=== PATIENT | female | born 1950 | race Hispanic/Latino ===

== ENCOUNTER 2019-09-20 22:13 | Emergency (ER) | payer MEDICARE, OTHER ==
[~2019-09-20] VITALS: Ht 157.5 cm; Wt 95.3 kg
--- OUTSIDE RECORDS SUMMARY | 2019-09-20 22:16 | XMS REPORT ---
Author Author [facility] t Organization [facility] Address [address] [place] [address] Phone Unavailable Care Team Providers Care Transport Nurse Name Role Phone Unavailable Unavailable Payers Payer Name Policy Type Policy Number Effective Date Expiration Date S ource Problems This patient has no known problems. Allergies, Adverse Reactions, Alerts Allergy Name Allergy Type Status Severity Reaction(s) Onset Date Inacti ve Date Treating Clinician Comments Source No Known Allergies DA Active U 2018-05-28 00:00:00 [facility] No Known Contrast Allergies DA Active U 2008-06-26 00:00: 00 [facility] No Known Drug Allergies DA Active U 2008-06-26 00:00:00 [facility] No Known Food Allergies DA Active U 2008-06-26 00:00:00 [facility] No Known Other Allergies DA Active U 2008-06-26 00:00:00 [facility] Medications This patient has no known medications. Procedures This patient has no known procedures. Results Test Description Test Time Test Comments Results Result Comments Source - CT ABD PELVIS W/CONT 2019-09-08 01:30:00 Jay e: ASTRID ZHANG [facility] FSED : 1950 Age/S: 68 / F [address] [facility] N Unit #: [id number] Loc: [address] Phys: Jaydon Mathews MD [place], [place] [address] Acct: [id number] Dis Date: Status: REG ER PHONE #: Exam Date: 09/08/2019 0048 FAX #: Reason: diffuse abd pain EXAMS: CPT CODE: [id number] CT ABD PELVIS W/CONT 94829 EXAM: - CT ABD PELVIS W/CONT LOCATION: C3 INDICATION: 68 years -old Female with diffuse abd pain TECHNIQUE: Contrast - IV contrast was given. No oral contrast was given Portal venous phase - abdomen and pelvis Delayed phase imaging was obtained through the abdomen and pelvis Reconstructions - coronal and sagittal planes This exam was performed according to our departmental dose-optimization program, which includes automated exposure control, adjustment of the mA and/or kV according to patient size and/or use of iterative reconstruction technique COMPARISON: None FINDINGS: Statements: None. Thoracic: Included images of the lower chest demonstrate no abnormalities. Hepatobiliary: The liver is normal without focal lesion. The gallbladder is normal. No biliary dilation. Pancreas: Normal. Spleen: Normal. Adrenals: Normal. Genitourinary: The kidneys are normal. No evidence of hydronephrosis. Evaluation of the bladder is limited, but no obvious bladder abnormality is present. Gastrointestinal: No bowel obstruction or perienteric inflammation. The appendix is normal. Vascular: Atherosclerotic calcifications are seen within the aorta and branch vessels. Lymphatics: No enlarged lymph nodes by CT size criteria. PAGE 1 Signed Report (CONTINUED) Name: ASTRID ZHANG [facility] FSED : 1950 Age/S: 68 / F [address] [facility] N Unit #: [id number] Loc: [address] Phys: Jaydon Mathews MD [place], [place] [address] Acct: [id number] Dis Date: Status: REG ER PHONE #: Exam Date: 09/08/2019 0048 FAX #: Reason: diffuse abd pain EXAMS: CPT CODE: [id number] CT ABD PELVIS W/CONT 06463 <Continued> Bones/Soft Tissues: No acute osseous findings. No ventral hernias. Peritoneum/Other: No extraluminal air. No extraluminal fluid. IMPRESSION: No acute findings. at 0130 Reported and signed by: Gallo Hernandez M.D. CC: Jaydon Mathews MD Technologist:Miles Yanez CTDI: DLP: Trnscb Date/Time: 09/08/2019 (129) [email or web address] Orig Print D/T: S: 09/08/2019 (132) PAGE 2 Signed Report BASIC METABOLIC PANEL 2019-09-08 00:19:00 Test Item SODIUM (test code = NA) 140 mmol/L 128-145 N POTASSIUM (test code = K) 3.7 mmol/L 3.5-5.1 N CHLORIDE (test code = CL) 101.0 mmol/L 98-107 N CARBON DIOXIDE (test code = CO2) 25.6 mmol/L 22-29 N ANION GAP (test code = GAP) 17 mmol/L 10-20 N GLUCOSE (test code = GLU) 110 mg/dL 70-110 N BLOOD UREA NITROGEN (test code = BUN) 12 mg/dL 7-22 N GLOMERULAR FILTRATION RATE (test code = GFR) > 60 mL/min >=60 Estimated GFR by using Modified MDRD formula.Chronic kidney disease is defined as either kidney damageor GFR <60 mL/min/1.73 m2 for >3 months. CREATININE (test code = CREAT) 0.79 mg/dL 0.55-1.3 N BUN/CREATININE RATIO (test code = BUN/CREA) 15.2 10-20 N CALCIUM (test code = CA) 9.1 mg/dL 8.0-10.5 N HEPATIC FUNCTION [id number] 00:19:00* Test Item Value Reference Range Interpretation Comments TOTAL PROTEIN (test code = PROT) 8.9 gram/dL 6.1-7.8 H ALBUMIN (test code = ALB) 4.3 g/dL 3.3-4.4 N GLOBULIN (test code = GLOB) 4.6 G/DL 1-10 N ALBUMIN/GLOBULIN RATIO (test code = A/G) 0.9 0.75-1.50 N BILIRUBIN TOTAL (test code = BILT) 0.40 mg/dL 0.2-1.2 N BILIRUBIN DIRECT (test code = BILD) 0.10 mg/dL 0.0-0.30 N SGOT/AST (test code = AST) 19 U/L 10-39 N SGPT/ALT (test code = ALT) 23 U/L 10-69 N ALKALINE PHOSPHATASE TOTAL (test code = ALKP) 96 U/L 50-139 N [id number] 00:19:00* Test Item Value Reference Range Interpretation Comments LIPASE (test code = LIP) 108 Unit/L 144-286 L HCG SERUM [id number] 00:19:00* Test Item Value Reference Range Interpretation Comments HCG SERUM QUAL (test code = HCGQL) NEGATIVE NEGATIVE This HCGQL test is NOT applicable for MALE patients.Check with nurse about probable order error.If Tumor Marker Test needed, nurse should order test "HCGTU"(Test #550.58734) BASIC METABOLIC [id number] 00:15:00* Test Item Value Reference Range Interpretation Comments SODIUM (test code = NA) 140 mmol/L 128-145 N POTASSIUM (test code = K) 3.7 mmol/L 3.5-5.1 N CHLORIDE (test code = CL) 101.0 mmol/L 98-107 N CARBON DIOXIDE (test code = CO2) 25.6 mmol/L 22-29 N ANION GAP (test code = GAP) 17 mmol/L 10-20 N GLUCOSE (test code = GLU) 110 mg/dL 70-110 N BLOOD UREA NITROGEN (test code = BUN) 12 mg/dL 7-22 N GLOMERULAR FILTRATION RATE (test code = GFR) > 60 mL/min >=60 Estimated GFR by using Modified MDRD formula.Chronic kidney disease is defined as either kidney damageor GFR <60 mL/min/1.73 m2 for >3 months. CREATININE (test code = CREAT) 0.79 mg/dL 0.55-1.3 N BUN/CREATININE RATIO (test code = BUN/CREA) 15.2 10-20 N CALCIUM (test code = CA) 9.1 mg/dL 8.0-10.5 N HEPATIC FUNCTION [id number] 00:15:00* Test Item Value Reference Range Interpretation Comments TOTAL PROTEIN (test code = PROT) gram/dL 6.4-8.2 ALBUMIN (test code = ALB) g/dL 3.4-5.0 GLOBULIN (test code = GLOB) G/DL 1-10 ALBUMIN/GLOBULIN RATIO (test code = A/G) 0.75-1.50 BILIRUBIN TOTAL (test code = BILT) mg/dL 0.0-1.0 BILIRUBIN DIRECT (test code = BILD) mg/dL 0.0-0.20 SGOT/AST (test code = AST) IUnit/L 15-37 SGPT/ALT (test code = ALT) IUnit/L 12-78 ALKALINE PHOSPHATASE TOTAL (test code = ALKP) IUnit/L 45-117 [id number] 00:15:00* Test Item Value Reference Range Interpretation Comments LIPASE (test code = LIP) U/L 73.0-393.0 HCG SERUM [id number] 00:15:00* Test Item Value Reference Range Interpretation Comments HCG SERUM QUAL (test code = HCGQL) NEGATIVE NEGATIVE This HCGQL test is NOT applicable for MALE patients.Check with nurse about probable order error.If Tumor Marker Test needed, nurse should order test "HCGTU"(Test #550.34966) [id number] 00:06:00* Test Item Value Reference Range Interpretation Comments TROPONIN-I (test code = TROPI) <0.015 ng/mL 0-0.045 N BASIC METABOLIC [id number] 00:00:00* Test Item Value Reference Range Interpretation Comments SODIUM (test code = NA) mmol/L 136-145 POTASSIUM (test code = K) mmol/L 3.5-5.1 CHLORIDE (test code = CL) mmol/L 98-107 CARBON DIOXIDE (test code = CO2) mmol/L 21-32 ANION GAP (test code = GAP) mmol/L 10-20 GLUCOSE (test code = GLU) mg/dL 70-110 BLOOD UREA NITROGEN (test code = BUN) mg/dL 7-22 GLOMERULAR FILTRATION RATE (test code = GFR) mL/min >=60 CREATININE (test code = CREAT) mg/dL 0.55-1.02 BUN/CREATININE RATIO (test code = BUN/CREA) 10-20 CALCIUM (test code = CA) mg/dL 8.5-10.1 HEPATIC FUNCTION [id number] 00:00:00* Test Item Value Reference Range Interpretation Comments TOTAL PROTEIN (test code = PROT) gram/dL 6.4-8.2 ALBUMIN (test code = ALB) g/dL 3.4-5.0 GLOBULIN (test code = GLOB) G/DL 1-10 ALBUMIN/GLOBULIN RATIO (test code = A/G) 0.75-1.50 BILIRUBIN TOTAL (test code = BILT) mg/dL 0.0-1.0 BILIRUBIN DIRECT (test code = BILD) mg/dL 0.0-0.20 SGOT/AST (test code = AST) IUnit/L 15-37 SGPT/ALT (test code = ALT) IUnit/L 12-78 ALKALINE PHOSPHATASE TOTAL (test code = ALKP) IUnit/L 45-117 [id number] 00:00:00* Test Item Value Reference Range Interpretation Comments LIPASE (test code = LIP) U/L 73.0-393.0 HCG SERUM [id number] 00:00:00* Test Item Value Reference Range Interpretation Comments HCG SERUM QUAL (test code = HCGQL) NEGATIVE NEGATIVE This HCGQL test is NOT applicable for MALE patients.Check with nurse about probable order error.If Tumor Marker Test needed, nurse should order test "HCGTU"(Test #550.34062) URINALYSIS [id number] 23:55:00* Test Item Value Reference Range Interpretation Comments UA COLOR (test code = COLU) YELLOW YELLOW UA APPEARANCE (test code = APPU) CLEAR CLEAR UA GLUCOSE DIPSTICK (test code = DGLUU) NEGATIVE mg/dL NEGATIVE UA BILIRUBIN DIPSTICK (test code = BILU) NEGATIVE NEGATIVE UA KETONE DIPSTICK (test code = KETU) NEGATIVE mg/dL NEGATIVE UA SPECIFIC GRAVITY (test code = SGU) 1.020 1.001-1.035 UA BLOOD DIPSTICK (test code = ARELI) TRACE NEGATIVE UA PH DIPSTICK (test code = DIEGO) 6.0 5.0-8.0 UA PROTEIN DIPSTICK (test code = PROU) NEGATIVE mg/dL Neg-15 UA UROBILINIOGEN DIPSTICK (test code = URO) 0.2 mg/dL 0.0-0.2 UA NITRITE DIPSTICK (test code = RAFAL) NEGATIVE NEGATIVE UA LEUKOCYTE ESTERASE DIPSTICK (test code = LEUU) NEGATIVE uL NEGA TIVE UA MICROSCOPIC NEEDED? (test code = UAMICRO) YES UA WBC (test code = WBCU) 0-5 per HPF 0-5 UA RBC (test code = RBCU) 0-2 per HPF 0-5 UA EPITHELIAL CELLS (test code = EPIU) Moderate (5-10/hpf) per HPF Few UA BACTERIA (test code = BACU) FEW per HPF NONE Urine Source? Clean CatchURINALYSIS [id number] 23:48:00* Test Item Value Reference Range Interpretation Comments UA COLOR (test code = COLU) YELLOW YELLOW UA APPEARANCE (test code = APPU) CLEAR CLEAR UA GLUCOSE DIPSTICK (test code = DGLUU) NEGATIVE mg/dL NEGATIVE UA BILIRUBIN DIPSTICK (test code = BILU) NEGATIVE NEGATIVE UA KETONE DIPSTICK (test code = KETU) NEGATIVE mg/dL NEGATIVE UA SPECIFIC GRAVITY (test code = SGU) 1.020 1.001-1.035 UA BLOOD DIPSTICK (test code = ARELI) TRACE NEGATIVE UA PH DIPSTICK (test code = DIEGO) 6.0 5.0-8.0 UA PROTEIN DIPSTICK (test code = PROU) NEGATIVE mg/dL Neg-15 UA UROBILINIOGEN DIPSTICK (test code = URO) 0.2 mg/dL 0.0-0.2 UA NITRITE DIPSTICK (test code = RAFAL) NEGATIVE NEGATIVE UA LEUKOCYTE ESTERASE DIPSTICK (test code = LEUU) NEGATIVE uL NEGA TIVE UA MICROSCOPIC NEEDED? (test code = UAMICRO) UA WBC (test code = WBCU) per HPF 0-5 UA RBC (test code = RBCU) per HPF 0-5 UA EPITHELIAL CELLS (test code = EPIU) per HPF Few UA BACTERIA (test code = BACU) per HPF NONE Urine Source? Clean CatchCBC W/O [id number] 23:44:00* Test Item Value Reference Range Interpretation Comments WHITE BLOOD CELL (test code = WBC) 11.0 K/mm3 4.5-12.5 N RED BLOOD CELL (test code = RBC) 5.19 mill/mm3 3.7-5.2 N HEMOGLOBIN (test code = HGB) 14.3 gram/dL 11.5-15.5 N HEMATOCRIT (test code = HCT) 44.2 % 36.0-46.0 N MEAN CELL VOLUME (test code = MCV) 85.2 fL 80-98 N MEAN CELL HGB (test code = MCH) 27.6 picogram 27.0-33.0 N MEAN CELL HGB CONCETRATION (test code = MCHC) 32.4 gram/dL 33.0-36. 0 L RED CELL DISTRIBUTION WIDTH (test code = RDW) 14.0 % 11.6-16. 2 N RED CELL DISTRIBUTION WIDTH SD (test code = RDW-SD) 43.8 fL 37 .0-51.0 N PLATELET COUNT (test code = PLT) 205 K/mm3 150-450 N MEAN PLATELET VOLUME (test code = MPV) 11.0 fL 6.7-11.0 N - XR CHEST 1 [id number] 22:42:00 FAX: Jaydon Boggs MD [phone] [place]: [place] St: REG Name: ASTRID MILLARD [facility] FSED : [birth year] Age/S: 67/F [address] [facility] N Unit #: [id number] Loc: [place] [address] Phys: Jaydon Mathews MD [place], [place] [address] Acct: [id number] Dis Date: Status: REG ER PHONE #: Exam Date: 05/28/2018 3852 FAX #: Reason: Shortness of Breath EXAMS: CPT CODE: [id number] XR CHEST 1 V 76041 EXAM: Chest x-ray, one view; INFORMATION: Shortness of breath; FINDINGS: Lungs are clear; no infiltrates, no edema; no effusions; no pneumothorax. A ortic calcifications. The heart is normal in size. IMPRESS ION: No evidence of active cardiopulmonary disease. Electronically Signed by Richard Young on at 2242 Reported and signed by: Ovidio Young M.D. CC: Jaydon Mathews MD Technologist: Laura Luis Trnwyrd Date/Time/By: 05/28/2018 (2241) : By: [email or web address] Orig Print D/T: S: 05/28/2018 (5608) PAGE 1 Signed Report BASIC METABOLIC PANEL 2018-05-28 21:28:00* Test Item Value Reference Range Interpretation Comments SODIUM (test code = NA) 140 mmol/L 128-145 N POTASSIUM (test code = K) 3.9 mmol/L 3.5-5.1 N CHLORIDE (test code = CL) 102.0 mmol/L 98-107 N CARBON DIOXIDE (test code = CO2) 30.6 mmol/L 22-29 H ANION GAP (test code = GAP) 11 mmol/L 10-20 N GLUCOSE (test code = GLU) 101 mg/dL 70-110 N BLOOD UREA NITROGEN (test code = BUN) 16 mg/dL 7-22 N GLOMERULAR FILTRATION RATE (test code = GFR) 47 mL/min >=60 Estimated GFR by using Modified MDRD formula.Chronic kidney disease is defined as either kidney damageor GFR <60 mL/min/1.73 m2 for >3 months. CREATININE (test code = CREAT) 1.16 mg/dL 0.55-1.3 N BUN/CREATININE RATIO (test code = BUN/CREA) 13.8 10-20 N CALCIUM (test code = CA) 8.6 mg/dL 8.0-10.5 N HEPATIC FUNCTION [id number] 21:28:00* Test Item Value Reference Range Interpretation Comments TOTAL PROTEIN (test code = PROT) 7.8 gram/dL 6.1-7.8 N ALBUMIN (test code = ALB) 3.5 g/dL 3.3-4.4 N GLOBULIN (test code = GLOB) 4.3 G/DL 1-10 N ALBUMIN/GLOBULIN RATIO (test code = A/G) 0.8 0.75-1.50 N BILIRUBIN TOTAL (test code = BILT) 0.30 mg/dL 0.2-1.2 N BILIRUBIN DIRECT (test code = BILD) 0.10 mg/dL 0.0-0.30 N SGOT/AST (test code = AST) 14 U/L 10-39 N SGPT/ALT (test code = ALT) 23 U/L 10-69 N ALKALINE PHOSPHATASE TOTAL (test code = ALKP) 105 U/L 50-139 N [id number] 21:28:00* Test Item Value Reference Range Interpretation Comments LIPASE (test code = LIP) 174 Unit/L 144-286 N [id number] 21:28:00* Test Item Value Reference Range Interpretation Comments TROPONIN-I (test code = TROPI) <0.015 ng/mL 0.00-0.056 N PROTHROMBIN [id number] 21:27:00* Test Item Value Reference Range Interpretation Comments PROTHROMBIN TIME PATIENT (test code = PTP) 9.3 seconds 9.0-13.0 N INTERNATIONAL NORMAL RATIO (test code = INR) 1.0 0.8-1.2 N The therapeutic range for oral anticoagulant therapy formost indications is an international normalized ratio (INR)of between 2.0 and 3.0. The recommended therapeutic INRrange for various clinical situations is listed below: Clinical Situation INR range Pulmonary e mbolism treatment (2.0-3.0)Venous thrombosis treatmentVenous thrombosis prophylaxis (high risk surgery)Prevention of systemic embolism from: Acute myocardial infarction Valvular heart disease Atrial fibrillation Mechanical prosthetic heart valves (2.5-3.5) IS PATIENT ON ANTICOAGULANTS? NTHROMBOPLASTIN TIME [id number] 21:27:00* Test Item Value Reference Range Interpretation Comments THROMBOPLASTIN TIME PARTIAL (test code = PTT) 26.7 seconds 25.5-34. 3 N Therapeutic Range for patients on Heparin Therapy is 2 to2.5 times their baseline PTT level. IS PATIENT ON ANTICOAGULANTS? NB-TYPE NATRIURETIC [id number] 21:23:00* Test Item Value Reference Range Interpretation Comments B-TYPE NATRIURETIC PEPTIDE (test code = BNP) 24.0 pg/mL 0-100 N BASIC METABOLIC [id number] 21:17:00* Test Item Value Reference Range Interpretation Comments SODIUM (test code = NA) 140 mmol/L 128-145 N POTASSIUM (test code = K) 3.9 mmol/L 3.5-5.1 N CHLORIDE (test code = CL) 102.0 mmol/L 98-107 N CARBON DIOXIDE (test code = CO2) 30.6 mmol/L 22-29 H ANION GAP (test code = GAP) 11 mmol/L 10-20 N GLUCOSE (test code = GLU) 101 mg/dL 70-110 N BLOOD UREA NITROGEN (test code = BUN) 16 mg/dL 7-22 N GLOMERULAR FILTRATION RATE (test code = GFR) 47 mL/min >=60 Estimated GFR by using Modified MDRD formula.Chronic kidney disease is defined as either kidney damageor GFR <60 mL/min/1.73 m2 for >3 months. CREATININE (test code = CREAT) 1.16 mg/dL 0.55-1.3 N BUN/CREATININE RATIO (test code = BUN/CREA) 13.8 10-20 N CALCIUM (test code = CA) 8.6 mg/dL 8.0-10.5 N HEPATIC FUNCTION [id number] 21:17:00* Test Item Value Reference Range Interpretation Comments TOTAL PROTEIN (test code = PROT) gram/dL 6.4-8.2 ALBUMIN (test code = ALB) g/dL 3.4-5.0 GLOBULIN (test code = GLOB) G/DL 1-10 ALBUMIN/GLOBULIN RATIO (test code = A/G) 0.75-1.50 BILIRUBIN TOTAL (test code = BILT) mg/dL 0.0-1.0 BILIRUBIN DIRECT (test code = BILD) mg/dL 0.0-0.20 SGOT/AST (test code = AST) IUnit/L 15-37 SGPT/ALT (test code = ALT) IUnit/L 12-78 ALKALINE PHOSPHATASE TOTAL (test code = ALKP) IUnit/L 45-117 [id number] 21:17:00* Test Item Value Reference Range Interpretation Comments LIPASE (test code = LIP) U/L 73.0-393.0 [id number] 21:17:00* Test Item Value Reference Range Interpretation Comments TROPONIN-I (test code = TROPI) ng/mL 0-0.045 CBC W/O [id number] 21:03:00* Test Item Value Reference Range Interpretation Comments WHITE BLOOD CELL (test code = WBC) 10.0 K/mm3 4.5-12.5 N RED BLOOD CELL (test code = RBC) 5.19 mill/mm3 3.7-5.2 N HEMOGLOBIN (test code = HGB) 14.5 gram/dL 11.5-15.5 N HEMATOCRIT (test code = HCT) 44.0 % 36.0-46.0 N MEAN CELL VOLUME (test code = MCV) 84.8 fL 80-98 N MEAN CELL HGB (test code = MCH) 27.9 picogram 27.0-33.0 N MEAN CELL HGB CONCETRATION (test code = MCHC) 33.0 gram/dL 33.0-36. 0 N RED CELL DISTRIBUTION WIDTH (test code = RDW) 12.9 % 11.6-16. 2 N RED CELL DISTRIBUTION WIDTH SD (test code = RDW-SD) 39.9 fL 37 .0-51.0 N PLATELET COUNT (test code = PLT) 228 K/mm3 150-450 N MEAN PLATELET VOLUME (test code = MPV) 11.6 fL 6.7-11.0 H
--- NOTE | 2019-09-20 22:45 | Emergency Department Note ---
History of Present Illnes History of Present Illness Chief Complaint: Abdominal Complaints History of Present Illness This is a 69 year old female . 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 (daughter translated, at patient's request) Onset (how long ago): month(s) (1) Location: epigastric, but also entire abdomen Quality: "bloating, aching, discomfort." The pain is keeping patient awake; Radiation: back (pt with pain radiating to the right back, from T6 - up to T2) Severity: moderate Onset quality: gradual (progressively worsening) Duration (how long): month(s) (1) Timing of current episode: constant Progression: worsening Chronicity: new Context: recent illness, recent surgery Relieving factors: none Exacerbating factors: eating (eating any type of food, seems to make the pain worse) Associated symptoms: denies other symptoms, loss of appetite Treatments prior to arrival: other (Pt has been treated with a variety of medications over the course of the past month, including: bentyl, Zofran, Carafate, Pepcid and Omeprazole,without relief of symptoms. Linzess was added 3 days ago, when she saw a GI doctor for consultation. She has an EGD scheduled for 09/29/2019, but she "doesn't feel that she can wait that long. ") Risk factors: NIDDM Previous service: medications given, tests performed, one or more referrals (Pt was seen at [facility] on 08/16/2019 and at [facility] on 09/08/2019. Pt states that she had lab work and CT scans performed of her abd, with IV contrast at both facilities. Pt was also seen by her personal physician, at some point during this time period. Pt has been diagnosed with "gastritis," and despite taking multiple medications for the symptoms, her pain is worsening. Pt was seen by a GI specialist on 09/17/2019 for a consultation, and she was started on Linzess. Pt has a "procedure " scheduled with this specialist on 09/29/19, but pt did not think that she could wait that long. I presume this is an EGD. Pt has had no f/c/n/v, or recent travel ) Past Medical/Family History Physician Review I have reviewed the patient's past medical and family history. Any updates have been documented here. Past Medical History Recent Fever: No Clinical Suspicion of Infectio: No New/Unexplained Change in Ment: No Past Medical History: Hypertension, Diabetes (NIDDM), Hypothyroidism, Hyperlipedemia Past Surgical History: (x1) Social History Smoking Cessation: Never Smoker Alcohol Use: None Any Illegal Drug Use: No TB Exposure/Symptoms: No Physically hurt or threatened: No Family History Other family history unclear Other Any Pre-Existing Lines (PICC,: No Review of Systems Review of Systems Constitutional: no symptoms, weakness; as per HPI, chills, fever, malaise, other EENTM: no symptoms Cardiovascular: no symptoms Respiratory: no symptoms Gastrointestinal: no symptoms, as per HPI, abdominal pain, other (Pt with epigastric and diffuse abdominal pain, difficult for her to localize; Significant abdominal bloating and "discomfort.") Genitourinary: no symptoms Musculoskeletal: back pain (right thoracic paraspinal area from T2 - T6) Neurological: no symptoms Psychological: no symptoms Endocrine: no symptoms Hematological/Lymphatic: no symptoms Review of other systems All other systems reviewed and negative. Physical Exam Related Data Allergies: Coded Allergies: No Known Allergies (Unverified , 09/20/19) Vital signs reviewed: Yes Physical Exam CONSTITUTIONAL Constitutional: well-developed, well-nourished HENT HENT: normocephalic, atraumatic, oropharynx clear/moist, nose normal HENT L/R: left ext ear normal, right ext ear normal EYES Eyes: PERRL, conjunctivae normal NECK PULMONARY Pulmonary: effort normal, breath sounds normal CARDIOVASCULAR Cardiovascular: regular rhythm, heart sounds normal, capillary refill normal, normal rate GASTROINTESTINAL Abdominal: soft, tender (epigastric and diffuse abdominal tenderness, without rebound or guarding; Neg Bocanegra's or McBurney's) GENITOURINARY Genitourinary: exam deferred SKIN Skin: warm, dry MUSCULOSKELETAL Musculoskeletal: ROM normal NEUROLOGICAL Neurological: alert, oriented x 3, no gross motor or sensory deficits PSYCHOLOGICAL Psychological: mood/affect normal, judgement normal Results Laboratory Lab results reviewed: Yes Laboratory comments CBC - Nl BMP - Nl Hepatic profile - normal UA - negative Imaging Imaging results reviewed: Yes Imaging Comments [place] [id number] Patient Name: ASTRID WALL MR #: [id number] : 1950 Age/Sex: 69/F Req #: [id number] [facility] Physician: Ordered by: JACI AGUILAR MD Report #: [id number] Location: [facility] Room/Bed: ___ Procedure: [id number] HOPD/US ABDOMEN COMPLETE-HOPD Exam Date: Exam Time: REPORT STATUS: Signed EXAM: Complete Abdominal Ultrasound INDICATION: ^abdominal bloating and pain COMPARISON: None. TECHNIQUE: Transverse and longitudinal images of the upper abdomen were obtained. FINDINGS: The technologist reports a technically limited study due to overlying bowel gas and patient body habitus. Liver: Size: 13.8 cm in the right midclavicular line, normal Appearance: Increased echogenicity, smooth contour Mass: No focal masses Spleen: Size: 8.1 cm in length, normal Echogenicity: Normal Mass: No focal masses Gallbladder: Suboptimally visualized. Possible sludge. No gallbladder wall thickening. Possible gallbladder wall comet tail artifact. Bile Ducts: Intrahepatic Ducts: No dilatation Extrahepatic Ducts: Common bile duct measures 0.3 cm, no dilatation Pancreas: Suboptimally visualized due to overlying bowel gas. Right Kidney: Size: 12.1 x 5 x 5.7 cm Echogenicity: Normal Parenchymal thickness: Normal Collecting System: No hydronephrosis Stone: None Cyst/Mass: None Left Kidney: Size: 10.5 x 5 x 5.1 cm Echogenicity: Normal Parenchymal thickness: Normal Collecting System: No hydronephrosis Stone: None Cyst/Mass: None Vessels: Aorta: Visualized portions are normal Inferior Vena Cava: Visualized portions are normal Main Portal Vein: 0.8 cm, normal size with hepatopetal flow. Free Fluid: No ascites or pleural effusion IMPRESSION: 1. Limited examination due to overlying bowel gas and patient body habitus. 2. Probable gallbladder sludge. Questionable gallbladder adenomyomatosis. No sonographic evidence of acute cholecystitis. 3. Fatty infiltration of the liver. Signed by: Maddie Newman MD on 09/21/2019 12:31 AM Dictated By: MADDIE NEWMAN MD Transcribed By: RJ on 09/21/1930 Diagnostics Tests Diagnostic test(s) reviewed: Yes Critical Care Time Subsequent provider I assumed direction of critical care for this patient from another provider of my specialty. Assessment & Plan Assessment & Plan Problems: (1) Abdominal pain (2) Abdominal bloating (3) Type II diabetes mellitus (4) Hypertension Assessment & Plan - Records obtained and reviewed from outside ER. [facility] , and patient did have an unremarkable CT abd/pelvis on 09/08/2019, as well as normal labs - USG revealed "sludge in the GB and possibly Reassessment Reassessment time: 01:00 Reassessment Pt feeling a bit better. Reviewed results of diagnostics with patient and daughter, and they were unrevealing, as to the etiology of her symptoms, though there is some abnormality of the gallbladder - PT to f/u with PCP on 09/22/2019, if possible, to discuss this ER visit (3rd visit in @ 1 month) and to consider a HIDA scan to better evaluate the galbladder function - Continue current meds - f/u with GI doctor on 09/29/2019, for "procedure." - BLAND DIET!! Depart Disposition: HOME, SELF-CARE Last Vital Signs See Nurse's notes Medications in the ED None JACI AGUILAR MD September 20, 2019 22:45
--- NOTE | 2019-09-21 00:34 | Diagnostic Imaging Report ---
EXAM: Complete Abdominal Ultrasound INDICATION: ^abdominal bloating and pain COMPARISON: None. TECHNIQUE: Transverse and longitudinal images of the upper abdomen were obtained. FINDINGS: The technologist reports a technically limited study due to overlying bowel gas and patient body habitus. Liver: Size: 13.8 cm in the right midclavicular line, normal Appearance: Increased echogenicity, smooth contour Mass: No focal masses Spleen: Size: 8.1 cm in length, normal Echogenicity: Normal Mass: No focal masses Gallbladder: Suboptimally visualized. Possible sludge. No gallbladder wall thickening. Possible gallbladder wall comet tail artifact. Bile Ducts: Intrahepatic Ducts: No dilatation Extrahepatic Ducts: Common bile duct measures 0.3 cm, no dilatation Pancreas: Suboptimally visualized due to overlying bowel gas. Right Kidney: Size: 12.1 x 5 x 5.7 cm Echogenicity: Normal Parenchymal thickness: Normal Collecting System: No hydronephrosis Stone: None Cyst/Mass: None Left Kidney: Size: 10.5 x 5 x 5.1 cm Echogenicity: Normal Parenchymal thickness: Normal Collecting System: No hydronephrosis Stone: None Cyst/Mass: None Vessels: Aorta: Visualized portions are normal Inferior Vena Cava: Visualized portions are normal Main Portal Vein: 0.8 cm, normal size with hepatopetal flow. Free Fluid: No ascites or pleural effusion IMPRESSION: 1. Limited examination due to overlying bowel gas and patient body habitus. 2. Probable gallbladder sludge. Questionable gallbladder adenomyomatosis. No sonographic evidence of acute cholecystitis. 3. Fatty infiltration of the liver. Signed by: Tanvir Clay MD on 09/21/2019 12:31 AM
== END 2019-09-21 01:15 | disposition home or self-care (01) ==
LOC: FSED 22:13
DX: R10.13 Epigastric pain (principal); R14.0 Abdominal distension (gaseous); E11.9 Type 2 diabetes mellitus without complications; I10 Essential (primary) hypertension; E78.5 Hyperlipidemia, unspecified; E03.9 Hypothyroidism, unspecified
CPT/HCPCS: 76700; 80048; 80076; 85025; 99283